=== PATIENT | female | born 2000 | race American Indian/Alaskan Native ===

== ENCOUNTER 2018-08-11 03:58 | Emergency (ER) | payer SELFPAY ==
[2018-08-11 04:46] LABS: Basophils % (Auto) 0.3 % (0.0-1.8); Eosinophils # (Auto) 0.1 K/mm3 (0.0-0.4); Eosinophils % (Auto) 0.8 % (0.0-4.3); Hematocrit 42.3 % (30.3-42.9); Hemoglobin 13.6 gm/dl (10.1-14.3); Lymphocytes # (Auto) 1.3 K/mm3 (1.2-5.4); Lymphocytes % (Auto) 7.6 % (13.4-35.0); Mean Corpuscular HGB Conc 32 % (30-34); Mean Corpuscular Volume 82 fl (79-97); Monocytes % (Auto) 6.3 % (0.0-7.3); Platelet Count 216 K/mm3 (140-440); Red Blood Count 5.15 M/mm3 (3.65-5.03)
[2018-08-11 05:39] LABS: Alanine Aminotransferase 19 units/L (7-56); Albumin 4.2 g/dL (3.9-5); BUN/Creatinine Ratio 13; Blood Urea Nitrogen 10 mg/dL (7-17); Calcium 9.5 mg/dL (8.4-10.2); Hemolysis Index 16
[2018-08-11] MEDS ORDERED: ZOFRAN ODT PO ONE ×2 (06:27→07:55)
[2018-08-11] MEDS ORDERED: IMODIUM PO ONE (06:27)
[2018-08-11] MEDS ORDERED: ULTRAM PO ONE (06:27)
[2018-08-11 06:31] VITALS: BP 106/76
[2018-08-11] MEDS ORDERED: ZOFRAN IV ONE (06:44)
[2018-08-11] MEDS ORDERED: NACL 0.9% 1000 ML 1,000 ML IV ONE (06:44)
--- NOTE | 2018-08-11 06:54 | Emergency Department Report ---
ED N/V/D HPI - General Chief complaint: Abdominal Pain Stated complaint: EMESIS/DIARRHEA/ABD PAIN Time Seen by Provider: 08/11/18 06:12 Source: patient Mode of arrival: Ambulatory Limitations: No Limitations - History of Present Illness Initial comments: 17-year-old female with a past medical history of asthma and previous umbilical hernia surgery presents for the nausea, vomiting, diarrhea 2 days. Her boyfriend is also sick with similar symptoms. She denies recent travel, fevers, melena, hematochezia, or hematemesis. She complains of generalized intermittent crampy diffuse abdominal pain 8/10 in intensity when it occurs. On average patient had 5 episodes of vomiting and diarrhea daily. Patient denies lightheadedness or dizziness. - Related Data Previous Rx's Medication Instructions Recorded Last Taken Type Loperamide [Imodium] 2 mg PO Q4H PRN #15 capsule 08/11/18 Unknown Rx Ondansetron [Zofran Odt] 4 mg PO Q8HR PRN #20 tab.rapdis 08/11/18 Unknown Rx traMADol [Ultram 50 MG tab] 50 mg PO Q6HR PRN #15 tablet 08/11/18 Unknown Rx Allergies Allergy/AdvReac Type Severity Reaction Status Date / Time No Known Allergies Allergy Unverified 08/11/18 04:02 ED Review of Systems ROS: Stated complaint: EMESIS/DIARRHEA/ABD PAIN Other details as noted in HPI Comment: All other systems reviewed and negative ED Past Medical Hx - Past Medical History Previous Medical History?: Yes Hx Asthma: Yes - Surgical History Past Surgical History?: Yes Additional Surgical History: hernia - Social History Smoking Status: Never Smoker Substance Use Type: None - Medications Home Medications: Home Medications Medication Instructions Recorded Confirmed Last Taken Type Loperamide [Imodium] 2 mg PO Q4H PRN #15 capsule 08/11/18 Unknown Rx Ondansetron [Zofran Odt] 4 mg PO Q8HR PRN #20 tab.rapdis 08/11/18 Unknown Rx traMADol [Ultram 50 MG tab] 50 mg PO Q6HR PRN #15 tablet 08/11/18 Unknown Rx ED Physical Exam - General Limitations: No Limitations - Other Other exam information: General: No limitations, patient is alert in no acute distress Head exam: Atraumatic, normocephalic Eyes exam: Normal appearance, pupils equal reactive to light, extraocular movements intact ENT: Moist mucous membrane, normal oropharynx Neck exam: Normal inspection, full range of motion, no meningismus nontender Respiratory exam: Clear to auscultation bilateral, no wheezes, rales, crackles Cardiovascular: Normal rate and rhythm, normal heart sounds Abdomen: Soft, nondistended, and nontender, with normal bowel sounds, no rebound, or guarding. Bellybutton piercing Extremity: Full range of motion normal inspection no deformity Back: Normal Inspection, full range of motion, no tenderness Neurologic: Alert, oriented x3, cranial nerves intact, no motor or sensory deficit Psychiatric: normal affect, normal mood Skin: Warm, dry, intact ED Course Vital Signs 08/11/18 08/11/18 08/11/18 04:03 04:07 05:20 Temperature 98.5 F Pulse Rate 89 Respiratory 18 18 Rate Blood Pressure 115/72 Blood Pressure [Right] O2 Sat by Pulse 100 Oximetry 08/11/18 06:30 Temperature Pulse Rate 88 Respiratory 18 Rate Blood Pressure Blood Pressure 106/76 [Right] O2 Sat by Pulse 98 Oximetry - Reevaluation(s) Reevaluation #1: 08/11/18 06:53 By mouth meds attempted but patient vomited. IV meds ordered. 08/11/18 08:00 Patient refused IV and states she is feeling better since she did manage to take in the Zofran although she did not tolerate the addition of tramadol and I modium by mouth. Patient given water and now tolerating by mouth intake. She states she is feeling much better. ED Medical Decision Making - Lab Data Result diagrams: 08/11/18 04:24 08/11/18 04:24 Lab Results 08/11/18 08/11/18 08/11/18 Range/Units 04:24 04:24 04:24 WBC 16.5 H (4.5-11.0) K/mm3 RBC 5.15 H (3.65-5.03) M/mm3 Hgb 13.6 (10.1-14.3) gm/dl Hct 42.3 (30.3-42.9) % MCV 82 (79-97) fl MCH 26 L (28-32) pg MCHC 32 (30-34) % RDW 14.0 (13.2-15.2) % Plt Count 216 (140-440) K/mm3 Lymph % (Auto) 7.6 L (13.4-35.0) % Boyle % (Auto) 6.3 (0.0-7.3) % Eos % (Auto) 0.8 (0.0-4.3) % Baso % (Auto) 0.3 (0.0-1.8) % Lymph # 1.3 (1.2-5.4) K/mm3 Boyle # 1.0 H (0.0-0.8) K/mm3 Eos # 0.1 (0.0-0.4) K/mm3 Baso # 0.0 (0.0-0.1) K/mm3 Seg Neutrophils % 85.0 H (40.0-70.0) % Seg Neutrophils # 14.0 H (1.8-7.7) K/mm3 Sodium 138 (137-145) mmol/L Potassium 4.1 (3.6-5.0) mmol/L Chloride 101.9 (98-107) mmol/L Carbon Dioxide 25 (22-30) mmol/L Anion Gap 15 mmol/L BUN 10 (7-17) mg/dL Creatinine 0.8 (0.7-1.2) mg/dL Estimated GFR > 60 ml/min BUN/Creatinine Ratio 13 % Glucose 94 (65-100) mg/dL Calcium 9.5 (8.4-10.2) mg/dL Total Bilirubin 0.40 (0.1-1.2) mg/dL AST 23 (5-40) units/L ALT 19 (7-56) units/L Alkaline Phosphatase 73 (35-129) units/L Total Protein 7.2 (6.3-8.2) g/dL Albumin 4.2 (3.9-5) g/dL Albumin/Globulin Ratio 1.4 % Lipase 22 (13-60) units/L HCG, Qual Negative (Negative) - Medical Decision Making Plan discharge patient with symptomatic treatment for gastroenteritis. Symptoms improved after ODT Zofran and patient refused IV treatment - Differential Diagnosis gastroenteritis, pancreatitis, hepatitis, , cholecystitis Critical Care Time: No Critical care attestation.: If time is entered above; I have spent that time in minutes in the direct care of this critically ill patient, excluding procedure time. ED Disposition Clinical Impression: Gastroenteritis Disposition: DC-01 TO HOME OR SELFCARE Is pt being admited?: No Does the pt Need Aspirin: No Condition: Stable Instructions: Gastroenteritis (ED) Additional Instructions: Take the medication as prescribed. Follow up with your doctor or the doctor/clinic provided. Return if symptoms worsen as indicated by your discharge instructions Prescriptions: Loperamide [Imodium] 2 mg PO Q4H PRN #15 capsule PRN Reason: Diarrhea Ondansetron [Zofran Odt] 4 mg PO Q8HR PRN #20 tab.rapdis PRN Reason: Nausea And Vomiting traMADol [Ultram 50 MG tab] 50 mg PO Q6HR PRN #15 tablet PRN Reason: Pain Referrals: JARON WAGGONER MD [Primary Care Provider] - 3-5 Days [facility] [Provider Group] - 3-5 Days Time of Disposition: 08:04
[2018-08-11] MEDS ORDERED: MORPHINE IV ONE (07:50)
== END 2018-08-11 08:16 | disposition home or self-care (01) ==
LOC: ED 03:58
DX: K52.9 Noninfective gastroenteritis and colitis, unspecified (principal); J45.909 Unspecified asthma, uncomplicated
CPT/HCPCS: 36415; 80053; 83690; 84703; 85025; 99283; J2405; J7030; Q0162

== ENCOUNTER 2019-01-20 16:51 | Emergency (ER) | payer SELFPAY ==
[2019-01-20 17:34] VITALS: BP 115/81
[2019-01-20 17:54] LABS: Bacteria,Urine 1+ /HPF (Negative); Bilirubin,Urine NEG (Negative); Blood,Urine NEG (Negative); Color,Urine Yellow (Yellow); Mucus,Urine FEW /HPF; Protein,Urine <15 mg/dL mg/dL (Negative)
[2019-01-20 18:05] LABS: HCG Qualitative,Urine Negative (Negative)
--- NOTE | 2019-01-20 20:00 | Emergency Department Report ---
ED Abdominal Pain HPI - General Chief Complaint: Urogenital-Female Stated Complaint: FREQUENT URINATING/ABDOMINAL PAIN Time Seen by Provider: 01/20/19 19:10 Source: patient Mode of arrival: Ambulatory Limitations: No Limitations - History of Present Illness Initial Comments: Patient is a 18-year-old female who presents to the emergency room with complai nts of suprapubic aching that began this morning. She states she has had 3 episodes of emesis. She denies any diarrhea. She states she had a normal bowel movement yesterday. The patient states she is able to tolerate by mouth intake. She denies any abdominal pain currently. She denies any vaginal discharge, vaginal itching, vaginal irritation. Patient states she has had urinary frequency. She states she is currently on Depo-Provera as control. She states she had an umbilical hernia repair 10 years ago. - Related Data Previous Rx's Medication Instructions Recorded Last Taken Type Loperamide [Imodium] 2 mg PO Q4H PRN #15 capsule 08/11/18 Unknown Rx Ondansetron [Zofran Odt] 4 mg PO Q8HR PRN #20 tab.rapdis 08/11/18 Unknown Rx traMADol [Ultram 50 MG tab] 50 mg PO Q6HR PRN #15 tablet 08/11/18 Unknown Rx Allergies Allergy/AdvReac Type Severity Reaction Status Date / Time No Known Allergies Allergy Verified 01/20/19 16:59 ED Review of Systems ROS: Stated complaint: FREQUENT URINATING/ABDOMINAL PAIN Other details as noted in HPI Comment: All other systems reviewed and negative ED Past Medical Hx - Past Medical History Hx Asthma: No - Surgical History Additional Surgical History: hernia/ D&C - Social History Smoking Status: Never Smoker Substance Use Type: None - Medications Home Medications: Home Medications Medication Instructions Recorded Confirmed Last Taken Type Loperamide [Imodium] 2 mg PO Q4H PRN #15 capsule 08/11/18 Unknown Rx Ondansetron [Zofran Odt] 4 mg PO Q8HR PRN #20 tab.rapdis 08/11/18 Unknown Rx traMADol [Ultram 50 MG tab] 50 mg PO Q6HR PRN #15 tablet 08/11/18 Unknown Rx ED Physical Exam - General Limitations: No Limitations General appearance: alert, in no apparent distress - Head Head exam: Present: atraumatic, normocephalic - Eye Eye exam: Present: normal appearance, PERRL - ENT ENT exam: Present: mucous membranes moist - Respiratory Respiratory exam: Present: normal lung sounds bilaterally. Absent: respiratory distress, wheezes, rales, rhonchi, stridor, chest wall tenderness, accessory muscle use, decreased breath sounds, prolonged expiratory - Cardiovascular Cardiovascular Exam: Present: regular rate, normal rhythm, normal heart sounds. Absent: systolic murmur, diastolic murmur, rubs, gallop - GI/Abdominal GI/Abdominal exam: Present: soft, tenderness (mild suprapubic ), normal bowel sounds. Absent: distended, guarding, rebound, rigid - Back Exam Back exam: Absent: CVA tenderness (R), CVA tenderness (L) - Neurological Exam Neurological exam: Present: alert, oriented X3 - Psychiatric Psychiatric exam: Present: normal affect, normal mood - Skin Skin exam: Present: warm, dry, intact ED Course Vital Signs 01/20/19 17:33 Temperature 98.6 F Pulse Rate 69 Respiratory 16 Rate Blood Pressure 115/81 [Left] O2 Sat by Pulse 100 Oximetry ED Medical Decision Making - Lab Data Vital Signs 01/20/19 17:33 Temperature 98.6 F Pulse Rate 69 Respiratory 16 Rate Blood Pressure 115/81 [Left] O2 Sat by Pulse 100 Oximetry - Medical Decision Making Patient is a 18-year-old female who presents to the emergency room with complaints of suprapubic aching that began this morning. She states she has had 3 episodes of emesis. She denies any diarrhea. She states she had a normal bowel movement yesterday. The patient states she is able to tolerate by mouth intake. She denies any abdominal pain currently. She denies any vaginal discharge, vaginal itching, vaginal irritation. Patient states she has had urinary frequency. She states she is currently on Depo-Provera as control. She states she had an umbilical hernia repair 10 years ago. VSS. UA is normal. Urine preg is negative. discussed with pt that she would need to have labs drawn and an XR of her abd. pt states that she can not wait to have those done because she left her siblings at home. advised pt that she would have to sign out against medical advice and discussed the risks associated with that including SBO, , permanent disability. the patient is alert and oriented x3. the patient exhibits decision making capacity. the patient is free from distracting injury. the risks of leaving w ithout a complete medical examination and AGAINST MEDICAL ADVICE, were explained to the patient, and they included , disability, paralysis, permanent loss of quality of life. the patient verbalized understanding to these and was able to articulate these risks in their own words and this conversation was witnessed by JENNIFER Benavides. - Differential Diagnosis UTI, SBO, constipation, vaginitis Critical care attestation.: If time is entered above; I have spent that time in minutes in the direct care of this critically ill patient, excluding procedure time. ED Disposition Clinical Impression: Abdominal pain Qualifiers: Abdominal location: lower abdomen, unspecified Qualified Code(s): R10.30 - Lower abdominal pain, unspecified Disposition: DC-07 LEFT AGAINST MED ADVICE Is pt being admited?: No Does the pt Need Aspirin: No Condition: Undetermined Instructions: Abdominal Pain (ED) Referrals: JEFF LOPEZ MD [Primary Care Provider] - [facility] Forms: AMA Form
== END 2019-01-20 20:00 | disposition left against medical advice (07) ==
LOC: ED 16:51
DX: R10.30 Lower abdominal pain, unspecified (principal); R11.10 Vomiting, unspecified
CPT/HCPCS: 81001; 81025